=== PATIENT | female | born 1985 | race African-American/Black ===

== ENCOUNTER 2020-09-20 16:13 | Emergency (ER) | payer OTHER ==
[~2020-09-20] VITALS: Ht 165.1 cm; Wt 84.0 kg
[2020-09-20] MEDS ORDERED: SODIUM CHLORIDE 0.9% 1,000 ML IV ONE (16:30)
[2020-09-20] MEDS ORDERED: LORAZEPAM 2MG/ML CPJ IV ONE (16:30)
[2020-09-20 17:05] LABS: BASOPHILS % 0.5 % (0.0-2.0); EOSINOPHILS % 3.3 % (0.0-5.0); HEMATOCRIT. 37.7 % (36.0-48.0); HEMOGLOBIN. 12.1 g/dL (12.0-16.0); LYMPHOCYTES % 9.6 % (20.0-50.0); MEAN CORPUSCULAR HEMOGLOBIN 26.3 pg (28.0-32.0); MEAN PLATELET VOLUME 9.5 fl (7.4-10.4); NEUTROPHILS % 80.6 % (40.0-76.0); PLATELET 196 x1000/uL (130-400); RED BLOOD CELL COUNT 4.59 mill/uL (4.2-5.4); RED CELL DISTRIBUTION WIDTH 16.2 % (11.6-14.6)
[2020-09-20 17:13] LABS: CHLORIDE 110 mEq/L (98-107)
[2020-09-20 17:15] LABS: PROTHROMBIN TIME 10.7 sec (9.6-11.0)
[2020-09-20 17:17] LABS: ETHANOL BLOOD < 10 mg/dL
[2020-09-20 18:02] LABS: HCG SCREEN NEGATIVE
[2020-09-20 18:40] LABS: CLARITY URINE CLEAR (CLEAR); COLOR URINE DARK YELLOW (YELLOW); KETONES URINE TRACE (NEGATIVE); LEUKOCYTE ESTERASE URINE TRACE (NEGATIVE); NITRITE URINE NEGATIVE (NEGATIVE); OCCULT BLOOD URINE 1+ (NEGATIVE); PH URINE 5.5 (4.5-8.0); PROTEIN URINE NEGATIVE (NEGATIVE); SPECIFIC GRAVITY URINE 1.035 (1.005-1.030); UROBILINOGEN URINE 0.2 E.U./dL (0.2-1.0)
[2020-09-20 18:50] LABS: *BARBITURATES SCREEN URINE NEGATIVE (NEGATIVE); *BENZODIAZEPINES SCREEN URINE NEGATIVE (NEGATIVE)
[2020-09-20 18:51] LABS: *AMPHETAMINES SCREEN URINE NEGATIVE (NEGATIVE); *COCAINE SCREEN URINE NEGATIVE (NEGATIVE); CANNABINOID URINE SCREEN NEGATIVE (NEGATIVE); METHADONE URINE SCREEN NEGATIVE (NEGATIVE); OPIATES URINE SCREEN NEGATIVE (NEGATIVE); PHENCYCLIDINE URINE SCREEN NEGATIVE (NEGATIVE)
[2020-09-21 00:13] VITALS: BP 119/77
== END 2020-09-21 01:02 | disposition short-term general hospital (02) ==
LOC: ER 16:13
DX: M54.6 Pain in thoracic spine (principal); M62.830 Muscle spasm of back; G95.0 Syringomyelia and syringobulbia
CPT/HCPCS: 36415; 71045; 80053; 80305; 80320; 81003; 81025; 83690; 83880; 84484; 84703; 85025; 85610; 93005; 96361; 96374; 99285; J2060; J7030; Z7610; G0480